=== PATIENT | female | born 1970 | race Caucasian/White ===

== ENCOUNTER 2017-09-18 22:41 | Emergency (ER) | payer MEDICAID ==
[~2017-09-18] VITALS: Ht 154.9 cm; Wt 93.0 kg
[2017-09-19] MEDS ORDERED: KETOROLAC 30MG/ML VIAL IV STA (00:59)
[2017-09-19] MEDS ORDERED: SODIUM CHLORIDE 0.9% 1,000 ML IV ONE (00:59)
[2017-09-19] MEDS ORDERED: METOCLOPRAMIDE HCL 10MG/2ML VIAL IV ONE (01:00)
[2017-09-19 01:40] LABS: BASOPHILS % 0.6 % (0.0-2.0); EOSINOPHILS % 1.3 % (0.0-5.0); HEMATOCRIT. 38.5 % (36.0-48.0); LYMPHOCYTES % 39.6 % (20.0-50.0); MEAN CORPUSCULAR HEMOGLOBIN 28.6 pg (28.0-32.0); MEAN CORPUSCULAR VOLUME 84.8 fL (81.0-99.0); MONOCYTES % 5.5 % (2.0-8.0); PLATELET 295 x1000/uL (130-400); RED BLOOD CELL COUNT 4.55 mill/uL (4.2-5.4); RED CELL DISTRIBUTION WIDTH 12.8 % (11.6-14.6)
[2017-09-19 01:49] LABS: CHLORIDE 103 mEq/L (98-107); PROTHROMBIN TIME 10.9 sec (9.4-11.6)
[2017-09-19 01:50] LABS: HCG SCREEN NEGATIVE
[2017-09-19 01:58] LABS: CARBON DIOXIDE 27 mEq/L (21-32)
[2017-09-19 02:11] LABS: CLARITY URINE CLEAR (CLEAR); COLOR URINE YELLOW (YELLOW); KETONES URINE NEGATIVE (NEGATIVE); LEUKOCYTE ESTERASE URINE 1+ (NEGATIVE); NITRITE URINE NEGATIVE (NEGATIVE); OCCULT BLOOD URINE NEGATIVE (NEGATIVE); PROTEIN URINE NEGATIVE (NEGATIVE); SPECIFIC GRAVITY URINE 1.017 (1.005-1.030); UROBILINOGEN URINE 0.2 E.U./dL (0.2-1.0)
[2017-09-19 03:10] VITALS: BP 122/60
== END 2017-09-19 03:10 | disposition home or self-care (01) ==
LOC: ER 22:41
DX: J40 Bronchitis, not specified as acute or chronic (principal); R03.0 Elevated blood-pressure reading, without diagnosis of hypertension; R73.9 Hyperglycemia, unspecified; R51 Headache
CPT/HCPCS: 36415; 71045; 80053; 81001; 82962; 84703; 85025; 85610; 87804; 93005; 96361; 96374; 96375; 99285; J1885; J2765; J7030; Z7610